=== PATIENT | male | born 1960 | race Caucasian/White ===

== ENCOUNTER 2016-12-01 05:54 | Outpatient (CLI) | payer OTHER | END 2016-12-01 05:55 | disposition critical access hospital (66) | LOC: EMS 05:54 | PROVIDERS: ATTEND Surgery | DX: M54.5 Low back pain (principal) | CPT/HCPCS: A0425; A0429 ==

== ENCOUNTER 2016-12-01 06:06 | Emergency (ER) | payer OTHER ==
[2016-12-01] MEDS ORDERED: diazePAM INJ 5 MG/ML SYRINGE IM STA (06:10)
[2016-12-01] MEDS ORDERED: KETOROLAC 60 MG/2 ML VIAL IM STA (06:10)
--- NOTE | 2016-12-01 06:13 | ED Physician Documentation ---
PD HPI BACK PAIN - Stated complaint Stated Complaint: BACK PAIN - History obtained from History obtained from: Patient, EMS - History of Present Illness Timing - onset: How many days ago (2) Timing - duration: Days (2) Timing - details: Gradual onset Pain level max: 9 Pain level now: 4 Location: Lower, Right, Left Quality: Pain, Spasm Associated symptoms: No: Fever, Weakness, Numbness, Incontinent of urine, Unable to urinate, Hematuria, Incontinent of stool Improves with: Rest Worsened by: Movement Contributing factors: Twisting Similar symptoms before: Has not had sx before Recently seen: Not recently seen - Additional information Additional information: took ibuprofen yesterday and helped, worsened over night. Unable to get out of bed this am. Review of Systems Ten Systems: 10 systems reviewed and negative Constitutional: denies: Fever, Chills Ears: denies: Ear pain Nose: denies: Rhinorrhea / runny nose, Congestion Cardiac: denies: Chest pain / pressure Respiratory: denies: Cough GI: denies: Abdominal Pain, Abdominal Swelling, Nausea, Vomiting, Diarrhea : denies: Unable to Void, Incontinent Skin: denies: Rash Musculoskeletal: denies: Neck pain Neurologic: denies: Focal weakness, Numbness, Headache, Head injury, LOC PD PAST MEDICAL HISTORY - Past Medical History Past Medical History: No - Past Surgical History Past Surgical History: No - Present Medications Home Medications: Ambulatory Orders Medication Instructions Recorded Confirmed Cyclobenzaprine [Flexeril] 10 mg PO TID PRN #20 tablet 12/01/16 Hydrocodone/Acetaminophen 1 - 2 each PO Q6H PRN #14 tablet 12/01/16 [Hydrocodon-Acetaminophen 5-325] Meloxicam [Mobic] 7.5 mg PO BID PRN #20 tablet 12/01/16 - Allergies Allergies/Adverse Reactions: Allergies Allergy/AdvReac Type Severity Reaction Status Date / Time No Known Drug Allergies Allergy Verified 12/01/16 06:13 - Living Situation Living Situation: reports: With family Living Arrangement: reports: At home - Social History Does the pt have substance abuse?: No - Family History Family history: reports: Non contributory PD ED PE NORMAL - Vitals Vital signs reviewed: Yes - General General: Alert and oriented X 3, No acute distress - HEENT HEENT: PERRL, Moist mucous membranes - Neck Neck: Supple, no meningeal sign - Cardiac Cardiac: RRR, Strong equal pulses - Respiratory Respiratory: No respiratory distress, Clear bilaterally - Abdomen Abdomen: Soft, Non tender, Non distended - Back Back: No spinal TTP, Other (paraspinal spasm B low lumbar, no midline TTP or percussion) - Derm Derm: Warm and dry - Extremities Extremities: Other (normal bilateral lower extremity patellar and ankle jerk reflexes. Normal great toe extension bilaterally) - Neuro Neuro: Alert and oriented X 3, court recorder 2-12 intact, No motor deficit, No sensory deficit - Psych Psych: Normal mood, Normal affect Results - Vitals Vitals: Vital Signs - 24 hr 12/01/16 06:09 Temperature 36.3 C L Heart Rate 80 Respiratory 17 Rate Blood Pressure 146/81 H O2 Saturation 98 Oxygen O2 Source Room air PD MEDICAL DECISION MAKING - ED course Complexity details: re-evaluated patient, considered differential (no cauda equina, no spinal epidural abscess, no fracture, no aortic dissection or evidence of aneursym rupture), d/w patient, d/w family ED course: Patient is a 56-year-old gentleman who presents with low back pain and spasms. No evidence of spinal fracture. No evidence of cauda equina or epidural abscess. No midline tenderness. Able to stand and walk in the emergency department. Will prescribe medication for home and this should improve over the next few days. Patient and family counseled regarding signs and symptoms for which I believe and urgent re-evaluation would be necessary. Patient with good understanding of and agreement to plan and is comfortable going home at this time This document was made in part using voice recognition software. While efforts are made to proofread this document, sound alike and grammatical errors may occur. Departure - Departure Disposition: 01 Home, Self Care Clinical Impression: Low back strain Qualifiers: Encounter type: initial encounter Qualified Code(s): S39.012A - Strain of muscle, fascia and tendon of lower back, initial encounter Condition: Good Instructions: ED Spasm Back No Trauma Follow-Up: your,doctor in 1 week [Other] Prescriptions: Cyclobenzaprine [Flexeril] 10 mg PO TID PRN #20 tablet PRN Reason: Spasms Hydrocodone/Acetaminophen [Hydrocodon-Acetaminophen 5-325] 1 - 2 each PO Q6H PRN #14 tablet PRN Reason: pain Meloxicam [Mobic] 7.5 mg PO BID PRN #20 tablet PRN Reason: pain Comments: Return if you worsen. This should improve over the next few days. Do not drink alcohol or drive while on narcotic pain medicine. Note that many narcotic pain relievers also contain tylenol/acetaminophen. Please ensure that your total dose of acetaminophen from all sources does not exceed 3 grams (3000mg) per day. You may constipated on this medication, take a stool softener such as "Colace" twice a day while you are on it. Also recommend a vubi-pov-texsejs laxative such as senna or MiraLAX any day that you do not have a bowel movement. If you received narcotic pain medication in the emergency department, do not drive or operate machinery for the next 24 hours.
[2016-12-01] MEDS ORDERED: KETOROLAC 60 MG/2 ML VIAL ONE (06:16)
[2016-12-01] MEDS ORDERED: diazePAM INJ 5 MG/ML SYRINGE ONE (06:16)
[2016-12-01 07:12] VITALS: BP 144/84
== END 2016-12-01 07:32 | disposition home or self-care (01) ==
LOC: EDUNIT# → ED 06:06
DX: S39.012A Strain of muscle, fascia and tendon of lower back, initial encounter (principal); M62.830 Muscle spasm of back; X58.XXXA Exposure to other specified factors, initial encounter
CPT/HCPCS: 96372; 99283

== ENCOUNTER 2017-01-19 07:12 | Day surgery (SDC) | payer OTHER ==
[2017-01-19] MEDS ORDERED: LACTATED RINGERS 1,000 ML IV ONE (07:15)
[2017-01-19] MEDS ORDERED: MIDAZOLAM 2 MG/2 ML VIAL IVP ONE (08:13)
[2017-01-19] MEDS ORDERED: fentaNYL 100 MCG/2 ML VIAL IVP ONE (08:13)
[2017-01-19 09:17] VITALS: BP 125/70
== END 2017-01-19 07:13 | disposition home or self-care (01) ==
LOC: SDS 07:12
PROVIDERS: ATTEND Surgery
PROC: 0DJD8ZZ Inspection of Lower Intestinal Tract, Via Natural or Artificial Opening Endoscopic (ICD-10-PCS; principal; 2017-01-19 09:00)
DX: Z12.11 Encounter for screening for malignant neoplasm of colon (principal)
CPT/HCPCS: 45378; J7120

== ENCOUNTER 2022-09-22 08:17 | Day surgery (SDC) | payer OTHER ==
[2022-09-22] MEDS ORDERED: BUPIVACAINE 0.25% PF 30 ML VIAL ONE (08:41)
[2022-09-22] MEDS ORDERED: LACTATED RINGERS 1,000 ML IV ONE ×2 (08:48→12:40)
--- NOTE | 2022-09-22 09:13 | ANESTHESIA ---
Pre-Anesthesia VS, & Labs - Diagnosis right inguinal hernia - Procedure right inguinal hernia repair with mesh Vital Signs: Temp Pulse Resp BP Pulse Ox O2 Flow Rate 36.2 C L 76 17 169/87 H 98 09/22/22 08:36 09/22/22 08:36 09/22/22 08:36 09/22/22 08:36 09/22/22 08:36 Height: 5 ft 8 in Weight (kg): 101.3 kg Body Mass Index: 33.9 BMI Classification: Obese - NPO >8 hours Home Medications and Allergies Home Medications: Ambulatory Orders ALPRAZolam [Alprazolam] 0.5 mg PO DAILY PRN 09/18/22 Rizatriptan Benzoate [Rizatriptan] 10 mg PO PRN PRN 09/18/22 Sertraline [Zoloft] 50 mg PO DAILY 09/18/22 Vitamin E Mixed [Vitamin E] 400 unit PO DAILY 09/18/22 ALPRAZolam [Alprazolam] 0.5 mg PO DAILY PRN 09/18/22 Rizatriptan Benzoate [Rizatriptan] 10 mg PO PRN PRN 09/18/22 Sertraline [Zoloft] 50 mg PO DAILY 09/18/22 Vitamin E Mixed [Vitamin E] 400 unit PO DAILY 09/18/22 Allergies/Adverse Reactions: Allergies Allergy/AdvReac Type Severity Reaction Status Date / Time No Known Drug Allergies Allergy Verified 01/19/17 07:31 Anes History & Medical History - Anesthetic History Anesthesia Complications: reports: No previous complications - Medical History Cardiovascular: reports: None Pulmonary: reports: None Gastrointestinal: reports: None Urinary: reports: None Neuro: reports: None Musculoskeletal: reports: None Endocrine/Autoimmune: reports: None Blood Disorders: reports: None Skin: reports: Eczema Smoking Status: Never smoker Psychosocial: reports: Anxiety, Alcohol (2x per week) - Surgical History General: reports: Colonoscopy, Other (hernia repair as a child) Exam General: Alert, Oriented x3, Cooperative, No acute distress Dental: WNL Mouth Openin Fingerbreadth Neck Mobility: Normal Mallampati classification: IV Thyromental Distance: less than 4 cm Mental/Cognitive Status: Alert/Oriented X3, Normal for patient Plan Anesthesia Type: General Consent for Procedure(s) Verified and Reviewed: Yes Code Status: Attempt Resuscitation ASA classification: 2-Mild systemic disease Is this case an emergency?: No
[2022-09-22] MEDS ORDERED: ATROPINE ABBOJECT 1 MG/10 ML SYRINGE IVP PRN (09:53)
[2022-09-22] MEDS ORDERED: ONDANSETRON 4 MG/2 ML VIAL IVP PRN ×2 (09:53→12:50)
[2022-09-22] MEDS ORDERED: HYDROmorphone 0.5 MG/0.5 ML SYRINGE IVP PRN ×2 (09:53→12:50)
[2022-09-22] MEDS ORDERED: NALOXONE 0.4 MG/ML VIAL IVP PRN (09:53)
[2022-09-22] MEDS ORDERED: MORPHINE 2 MG/ML CARPUJECT IVP PRN (09:53)
[2022-09-22] MEDS ORDERED: fentaNYL 100 MCG/2 ML VIAL IVP PRN (09:53)
[2022-09-22] MEDS ORDERED: LACTATED RINGERS 1,000 ML IV SCH (10:00)
[2022-09-22] MEDS ORDERED: CEFAZOLIN 2G/50ML 0.9% NS 2 GM/50 ML BAG IV ONE (10:01)
[2022-09-22] MEDS ORDERED: PROPOFOL 200 MG/20 ML VIAL IVP ONE ×2 (10:06→11:21)
[2022-09-22] MEDS ORDERED: fentaNYL 100 MCG/2 ML VIAL ONE (10:06)
[2022-09-22] MEDS ORDERED: MIDAZOLAM 2 MG/2 ML VIAL ONE (10:06)
[2022-09-22] MEDS ORDERED: KETOROLAC 30 MG/ML VIAL ONE (11:21)
[2022-09-22] MEDS ORDERED: DEXAMETHASONE 4 MG/ML VIAL ONE (11:21)
[2022-09-22] MEDS ORDERED: ONDANSETRON 4 MG/2 ML VIAL ONE (11:21)
[2022-09-22] MEDS ORDERED: ePHEDrine 50 MG/ML VIAL IVP ONE (11:28)
[2022-09-22] MEDS ORDERED: BUPIVACAINE 0.25% PF 30 ML VIAL SUBQ ONE (11:32)
[2022-09-22] MEDS ORDERED: HYDROmorphone 1 MG/ML CARPUJECT ONE (11:35)
--- NOTE | 2022-09-22 12:39 | OPERATIVE REPORT ---
Operative Report - General Procedure Date: 09/22/22 Planned Procedure: RIGHT inguinal herniorrhaphy Pre-Op Diagnosis: RIGHT inguinal hernia Procedure Performed: RIGHT direct inguinal herniorrhaphy with mesh Post Op Diagnosis: RIGHT direct inguinal hernia - Procedure Note Primary Surgeon: Nayan Lopez MD Anesthesia Provider: Justice Ramos CRNA Anesthesia Technique: General LMA, Local (30 mL of quarter percent Marcaine) IV Fluids (mL): 1,200 Estimated Blood Loss (mL): 20 Drain/Tube Type: Other (None.) Findings: Complete absence of the floor of the inguinal canal, no indirect inguinal hernia. Complications: None. - Other Other Information/Narrative: After verbal and written informed consent was obtained detailing the operation, the alternatives the operation including no operation, risks of infection, bleeding requiring transfusion with its risks, nerve injury, and and after I met with the patient confirming the surgery and the site of surgery, the patient was brought to the operative suite and placed supine on the operating table. Great care was taken to avoid pressure points to prevent pressure necrosis or nerve injury. Monitoring devices were applied along with TEDs and pneumatic compression stockings (to prevent DVT). The patient received preoperative antibiotics for surgical prophylaxis. Justice Ramos CRNA sedated and anesthetized the patient for the entire procedure. The patient was prepped and draped in the usual sterile manner. With the patient draped my initials were clearly visible. A "time in" then confirmed that the patient was identified with 3 identifiers (name, date, and medical record number), the history and physical was updated and in the chart, the signed consent confirming the procedure was in the chart, the patient was in the correct position, the aforementioned prophylactic measures were in place or given, we had the correct personnel and equipment to complete the procedure and that anesthesia and the surgical team were given an opportunity to express any concerns. With the agreement of everyone in the room we proceeded with the operation. After the inguinal area was injected with quarter percent Marcaine, anesthetizing the area, a standard inguinal incision was made and dissection was carried down to the external oblique aponeurosis using a combination of Metzenbaum scissors and Bovie electrocautery. Note, the patient had a significant amount of tissue in his pelvis and the dissection was quite deep. This necessitated use of the Jasperon Theodora as a retractor. The external ob lique aponeurosis was cleared of overlying adherent tissue, and the external ring was delineated. The external oblique was incised with a scalpel and this incision was carried down to the external ring using Metzenbaum scissors. Care was taken not to injure the ilioinguinal nerve. Having expose the inguinal canal, the cord structures were from the canal using blunt dissection and a Brian drain was placed around the cord structures at the level of the pubic tubercle. This Brian drain was then used to retract the cord structures as needed. Adherent cremasteric muscle was dissected free from the cord using Bovie electrocautery. The cord was then explored using a combination of sharp and blunt dissection, and no sac was found. It was immediately apparent that the patient had a large direct inguinal hernia as there was absolutely no floor to the inguinal canal. The hernia sac was dissected free from the cord contents using a combination of sharp dissection, blunt dissection, and Bovie electrocautery. The hernia was found coming from the floor the inguinal canal medial to the inferior epigastric vessels. The hernia was inverted back into the abdominal cavity and an extra large PerFix plug (reference# [id number], lot# [id number], use by 2023-12-30) inserted into the hernia defect. Even with this extra-large plug it was smaller than the actual defect as again the defect was the entire inguinal floor. The plug was secured to the edge of the hernia defect using interrupted 2-0 PDS sutures. This permitted the floor of the inguinal canal to be repaired without the hernia in my way. The PerFix onlay patch was then secured to the pubic tubercle with two 0-PDS U stitches. The superior stitch was then run attaching the mesh to the conjoined tendon whereas the inferior stitch was run attaching the mesh to the shelving edge of Poupart's ligament. The mesh was secured around the cord structures loosely thus creating a new internal ring. It should be noted that this operation was much harder than usual due to the patient's anatomy, the complete lack of a floor and the increased abdominal pressure pushing the hernia sac out towards me. The Brian drain was then removed. The wound was irrigated using sterile saline, and hemostasis was obtained using Bovie electrocautery. The incision the external oblique was approximated using 3-0 Vicryl in a running fashion thus reforming the external ring. The skin incision was approximated with 4-0 Monocryl in a subcuticular fashion. The skin was cleaned of its prep and Dermabond was applied. At this point a timeout was performed that confirmed that all counts were correct x2, the procedure that was performed, the blood loss, the IV fluids administered, the patient's condition, and any concerns of the operating team had. Having tolerated the procedure well, the patient was taken recovery room in good and stable condition. Gentle downward traction ensured the testes were well seated in the scrotum. The plan is for outpatient discharge when the patient is adequately recovered. CPT 68593 This document was created in part using voice recognition technology. Because of the inherent limitations of the system, occasional same sounding word substitutions and grammatical errors do occur and persist despite proofreading. Please read this document for content.
[2022-09-22] MEDS ORDERED: HYDROcod/ACETAM 5/325 MG TABLET PO PRN (12:50)
[2022-09-22] MEDS ORDERED: HYDROcod/ACETAM 5/325 MG TABLET ONE (13:33)
[2022-09-22 13:44] VITALS: BP 160/79
--- NOTE | 2022-09-22 16:19 | ANESTHESIA POST OP EVALUATION ---
Anesthesia Post Eval - Post Anesthesia Eval Vitals: Last Vital Signs Temp 36.0 C L 09/22/22 13:43 Pulse 81 09/22/22 13:43 Resp 16 09/22/22 13:43 BP 160/79 H 09/22/22 13:43 Pulse Ox 96 09/22/22 13:43 O2 Flow Rate CV Function Including HR & BP: Stable Pain Control: Satisfactory Nausea & Vomiting: Negative Mental Status: Baseline Respiratory Status: Airway Patent Hydration Status: Satisfactory Anesthesia Complications: None
== END 2022-09-22 08:18 | disposition home or self-care (01) ==
LOC: SDS 08:17
PROVIDERS: ATTEND Surgery
DX: K40.90 Unilateral inguinal hernia, without obstruction or gangrene, not specified as recurrent (principal); E66.9 Obesity, unspecified; Z68.33 Body mass index [BMI] 33.0-33.9, adult; F41.9 Anxiety disorder, unspecified; G47.30 Sleep apnea, unspecified
CPT/HCPCS: 49505; A9270; C1781; J0690; J1170; J7120